=== PATIENT | male | born 1945 | race Caucasian/White ===

== ENCOUNTER 2019-07-26 16:50 | Emergency (ER) | payer MEDICARE, BC ==
[2019-07-26] MEDS ORDERED: Bacitracin Oint 1 GM U/D Packet TOP ONE (17:16)
[2019-07-26] MEDS ORDERED: Lidocaine 1% with EPINEPHrine 1:100,000 50 ML MDV SUBCUT STA (17:16)
--- NOTE | 2019-07-26 17:36 | EDM.PDOC ---
ED HPI GENERAL MEDICAL PROBLEM - General Chief Complaint: Laceration Stated Complaint: CUT HAND WITH FILET KNIFE Time Seen by Provider: 07/26/19 17:02 Source of Information: Reports: Patient, RN Notes Reviewed History Limitations: Reports: No Limitations - History of Present Illness INITIAL COMMENTS - FREE TEXT/NARRATIVE: 74-year-old gentleman presents to emergency department today with a laceration to the palmar surface of his right hand he injured himself with a fillet knife, no functional complaints - Related Data Allergies Allergy/AdvReac Type Severity Reaction Status Date / Time No Known Allergies Allergy Verified 07/26/19 17:13 Home Meds: Home Meds Aspirin 81 mg PO DAILY 07/26/19 [History] DULoxetine [Cymbalta] 60 mg PO DAILY 07/26/19 [History] Fluconazole [Diflucan] 200 mg PO ASDIRECTED 07/26/19 [History] Pravastatin [Pravachol] 20 mg PO DAILY 07/26/19 [History] Past Medical History HEENT History: Reports: Impaired Vision Oncologic (Cancer) History: Reports: Colon - Infectious Disease History Infectious Disease History: Reports: Chicken Pox, Measles, Mumps - Past Surgical History GI Surgical History: Reports: Appendectomy Musculoskeletal Surgical History: Reports: Other (See Below) Other Musculoskeletal Surgeries/Procedures:: back surgery Social & Family History - Tobacco Use Smoking Status *Q: Current Every Day Smoker Years of Tobacco use: 60 Packs/Tins Daily: 0.5 - Caffeine Use Caffeine Use: Reports: Coffee - Recreational Drug Use Recreational Drug Use: No ED ROS GENERAL - Review of Systems Review Of Systems: See Below Skin: Reports: Wound Neurological: Reports: No Symptoms ED EXAM, SKIN/RASH Exam: See Below Text/Narrative:: Examination of the right hand he does have a 1.5 cm laceration partially through the dermis palmar surface below digit #5, full range of motion of all digits radial pulses +2 ED SKIN PROCEDURES - Laceration/Wound Repair Left Hand Appearance: Subcutaneous, Linear Distal NVT: Neuro & Vascular Intact, No Tendon Injury Anesthetic Type: Local Local Anesthesia - Lidocaine (Xylocaine): 1% with EPI Local Anesthetic Volume: 2cc Skin Prep: Saline Saline Irrigation (cc's): 60 Exploration/Debridement/Repair: Wound Explored, In a Bloodless Field, Explored to Base Closed with: Sutures Lac/Wound length In cm: 1.5 Suture Size: 4-0 # of Sutures: 3 Suture Type: Nylon, Interrupted Sterile Dressing Applied: Nurse Tetanus Status Addressed: Yes (2013) Course - Vital Signs Last Recorded V/S: Last Vital Signs Temp 99.0 F 07/26/19 17:09 Pulse 76 07/26/19 17:09 Resp 16 07/26/19 17:09 BP 161/90 H 07/26/19 17:09 Pulse Ox 97 07/26/19 17:09 - Orders/Labs/Meds Meds: Medications Discontinued Medications Generic Name Dose Route Start Last Admin Trade Name Donnie PRN Reason Stop Dose Admin Bacitracin 1 dose 07/26/19 17:16 07/26/19 17:24 Bacitracin Oint 1 Gm TOP 07/26/19 17:17 1 dose ONETIME ONE Administration Lidocaine/Epinephrine 20 ml 07/26/19 17:16 07/26/19 17:24 Xylocaine 1% With Epinephrine 1:100,000 SUBCUT 07/26/19 17:17 20 ml NOW STA Administration Departure - Departure Time of Disposition: 17:34 Disposition: Home, Self-Care 01 Condition: Good Clinical Impression: Laceration of right hand Qualifiers: Encounter type: initial encounter Foreign body presence: without foreign body Qualified Code(s): S61.411A - Laceration without foreign body of right hand, initial encounter - Discharge Information Instructions: Sutured Wound Care, [id number] Referrals: PCP,None [Primary Care Provider] - Additional Instructions: Suture removal in 10 days, follow-up with primary care or return to the emergency department - Assessment/Plan Plan: Assessment Acuity = acute Site and laterality = 1.5 cm laceration right hand Etiology = trauma with a knife Manifestations = none Location of injury = Home Lab values = none Plan Suture removal in 10 days, follow-up primary care for suture removal or return to the emergency department This note was dictated using [employer] voice recognition software please call with any questions on syntax or grammar.
== END 2019-07-26 17:50 | disposition home or self-care (01) ==
LOC: JP.ED 16:50
DX: S61.411A Laceration without foreign body of right hand, initial encounter (principal); F17.210 Nicotine dependence, cigarettes, uncomplicated; Z79.82 Long term (current) use of aspirin; Z79.899 Other long term (current) drug therapy; Z90.49 Acquired absence of other specified parts of digestive tract; W26.0XXA Contact with knife, initial encounter
CPT/HCPCS: 12001; 99282; 99283